=== PATIENT | male | born 1985 | race Caucasian/White ===

== ENCOUNTER 2022-12-04 21:04 | Emergency (ER) | payer OTHER, SELFPAY ==
[2022-12-04 21:10] VITALS: BP 155/80; PULSE 104; RESP 18; TEMP 37.1; O2SAT 98; BMI 51.5
--- NOTE | 2022-12-04 21:45 | DI.RAD.S_ITS ---
PROCEDURE: XR KNEE RT 3V INDICATIONS: fall, pain TECHNIQUE: 3 views of the knee were acquired. COMPARISON: None. FINDINGS: Bones: No fractures or dislocations. No suspicious bony lesions. Soft tissues: There is a small joint effusion. No suspicious soft tissue calcifications. IMPRESSION: 1. No fracture or dislocation 2. Small joint effusion. Dictated by: Alonso Alanis M.D. on 12/04/2022 at 23:30 Approved by: Alonso Alanis M.D. on 12/04/2022 at 23:42
--- NOTE | 2022-12-04 23:53 | ED.LOWEXIN ---
HPI - Extremity Injury (Lower) General Chief Complaint: Extremity Injury, Lower Stated Complaint: Right knee injury Time Seen by Provider: 12/04/22 23:15 Source: patient and EMS Mode of arrival: EMS History of Present Illness HPI Narrative: 37-year-old gentleman visiting from [place] history of hypertension, morbid obesity, HIV positive with undetectable viral levels, asthma stepped onto his parents boat and missed a step hyperextending the right leg and hyperflexing the left. Unable to bear weight on the right and feels that it is unstable with any attempts to put weight on it. Comes in for further evaluation Related Data Previous Rx's Medication Instructions Recorded oxycodone 5 mg tablet 5 mg PO Q6H PRN pain #20 tabs 12/05/22 Review of Systems Review of Systems Narrative: Pertinent positive and negative findings as per HPI Patient History Social History Smoking Status: Never smoker Smoking Status: Never smoker Substance Use Type: does not use Exam Initial Vital Signs Initial Vital Signs: Vital Signs Temperature 98.7 F 12/04/22 21:10 Pulse Rate 104 H 12/04/22 21:10 Respiratory Rate 18 12/04/22 21:10 Blood Pressure 155/80 H 12/04/22 21:10 Pulse Oximetry 98 12/04/22 21:10 Oxygen Delivery Method Room Air 12/04/22 21:10 General: Alert appropriate in no acute distress Respiratory: Able to speak in full sentences, no obvious respiratory distress Skin: No obvious rashes, warm and dry Neurologic: Grossly intact no obvious asymmetries or abnormalities Psych: appropriate insight and affect, cooperative Extremity: Left knee with some minor tenderness along the medial collateral ligament. Right knee with minor effusion and significant tenderness with movement in any plane. To tender to fully evaluate ligamentous stability. Procedures Orthopedic Splinting/Casting right knee: Time of procedure: 00:16 Side: right Lower Extremity Injury Location: knee Lower Extremity Immobilizer: knee immobilizer Other Orthopedic Equipment: crutches Post splinting neuro exam: intact Post splinting vascular exam: intact Placed by: Nursing Course Orders Ordered: ED Orders 12/04/22 21:45 XR knee RT 3V Stat Vital Signs Vital signs: Vital Signs - 8 hr 12/04/22 21:10 Temperature 98.7 F Pulse Rate 104 H Respiratory Rate 18 Blood Pressure 155/80 H Pulse Oximetry 98 Oxygen Delivery Method Room Air MDM - Extremity Injury (Lower) MDM Narrative Medical decision making narrative: CC: Hyperextension injury right knee, felt a ?pop?, knee feels unstable and painful to stand on. This is an acute injury uncertain prognosis Complicating co-morbidities: Morbid obesity Data collected from: patient, mother Social determinants of health that may influence the patients condition: Patient currently visiting from out of town Differential considered: Fractures, acute ligamentous injury Exam documented above, pertinent findings include: Right side has a mild effusion sense of instability with any movement of the knee and unable to bear weight. Imaging studies independently reviewed: X-ray of the knee does not show any acute bony injury Treatments:PO ibuprofen, percoset, ICE Discussion: 37-year-old gentleman who missed a step stepping onto the boat hyperextension injury to the right knee with a ?pop? heard and felt with increasing pain and joint instability. Suspect acute ligamentous injury. He is placed in a knee immobilizer, discussed pain control, use of crutches importance of not placing any weight on the knee without the immobilizer in place for risk of falling. Will need orthopedic follow-up and likely advanced imaging for definitive treatment and diagnosis. He is safe for discharge home Discharge Plan Departure Patient Disposition: Home Clinical Impression: Knee derangement Qualifiers: Laterality: right Qualified Code(s): M23.91 - Unspecified internal derangement of right knee Instructions: DI for Knee Sprain Activity Restrictions/Additional Instructions: Thank you for coming in today I am concerned that you may have some significant ligamentous injury to your right knee particularly with the sense that the knee feels unstable with movement. There is no bony injury. You need to keep the knee in the knee immobilizer for stability, you can use crutches and he do need to follow-up with orthopedic surgery. Would recommend calling [facility] at [phone] to set up a ER follow-up appointment for right knee injury. Using 400 mg of ibuprofen (2 [id number] pills) and 1 Tylenol every 6 hours can be very helpful in controlling pain. Adding 5 mg of oxycodone to this combination can be helpful for severe pain. Please do expect to find increasing pain in additional places like your low back over the next 24 hours as your body begins to heal. Keeping the knee elevated and iced can also help. If you find that you are getting worse or develop any new symptoms, please feel free to return to the emergency department for further evaluation. Prescriptions: New oxycodone 5 mg tablet 5 mg PO Q6H PRN (Reason: pain) Qty: 20 0RF Stand Alone Forms: Patient Portal/API
[2022-12-05] MEDS: IBUPROFEN 400 MG TABLET PO (00:25)
[2022-12-05] MEDS: OXYCODONE/APAP 5/325 PREPACK 1 BOTTLE MISC (00:26)
[2022-12-05] MEDS: OXYCODONE/ACETAMINOPHEN 5/325 TABLET 1 TAB PO ×2 (00:26→01:07)
[2022-12-05 01:14] VITALS: BP 172/94; PULSE 95; RESP 18; O2SAT 98
== END 2022-12-05 01:16 | disposition home or self-care (01) ==
PROVIDERS: Emergency Provider Emergency Medicine
DX: M23.91 Unspecified internal derangement of right knee (principal); X58.XXXA Exposure to other specified factors, initial encounter
CPT/HCPCS: 73562; 99283

== ENCOUNTER 2022-12-05 14:55 | Emergency (ER) | payer OTHER, SELFPAY ==
[2022-12-05 14:58] VITALS: BP 135/85; PULSE 97; RESP 18; TEMP 36.7; O2SAT 98; BMI 51.5
--- NOTE | 2022-12-05 15:57 | ED.LOWEXIN ---
HPI - Extremity Injury (Lower) General Chief Complaint: Extremity Injury, Lower Stated Complaint: R Knee Pain Time Seen by Provider: 12/05/22 15:22 Source: patient and EMS Mode of arrival: EMS History of Present Illness HPI Narrative: Patient is a 37-year-old male who was seen here in the emergency department yesterday after a hyperextension injury to his right leg. He had an x-ray which showed no fractures. He was placed in a knee immobilizer. Was placed on crutches and pain medication and instructed to follow up with Orthopedics. He returns to the emergency department today stating that he can not put any pressure on his right leg because of the discomfort. He also states he can not support his body weight with his left leg. Has been sitting at home. His pain has not been controlled. Related Data Previous Rx's Medication Instructions Recorded oxycodone 5 mg tablet 5 mg PO Q6H PRN pain #20 tabs 12/05/22 oxycodone 5 mg tablet 10 mg PO Q6H PRN pain #30 tabs 12/05/22 Allergies Allergy/AdvReac Type Severity Reaction Status Date / Time codeine Allergy Unknown Verified 12/05/22 01:36 Sulfa (Sulfonamide Allergy Unknown Verified 12/05/22 01:36 Antibiotics) Review of Systems Constitutional Constitutional: Reports system reviewed and no additional complaints, except as documented Musculoskeletal Musculoskeletal: Reports system reviewed and no additional complaints, except as documented Integumentary/Breasts Skin/Breast: Reports system reviewed and no additional complaints, except as documented Neurologic Neurologic: Reports system reviewed and no additional complaints, except as documented Patient History Social History Smoking Status: Never smoker Smoking Status: Never smoker Substance Use Type: does not use Exam Initial Vital Signs Initial Vital Signs: Vital Signs Temperature 98.0 F 12/05/22 14:58 Pulse Rate 97 H 12/05/22 14:58 Respiratory Rate 18 12/05/22 14:58 Blood Pressure 135/85 12/05/22 14:58 Pulse Oximetry 98 12/05/22 14:58 Oxygen Delivery Method Room Air 12/05/22 14:58 HENMT Head: normal to inspection and normocephalic Extrem Other: Patient in a right knee immobilizer, his right foot is unremarkable. His compartments are soft. Does have some moderate swelling of the right knee. Unable to do functional testing of his ligaments secondary to pain. Course Vital Signs Vital signs: Vital Signs - 8 hr 12/05/22 14:58 Temperature 98.0 F Pulse Rate 97 H Respiratory Rate 18 Blood Pressure 135/85 Pulse Oximetry 98 Oxygen Delivery Method Room Air MDM - Extremity Injury (Lower) MDM Narrative Medical decision making narrative: Unfortunately there is not much more we can do out of the emergency department. He does not meet criteria for admission to the hospital nor transfer to an outside facility. He has follow-up orthopedics already scheduled. He is crutches at home. He states his issues his that he can not get from sitting to standing because his upper extremities are too weak to lift his body. He also feels like he can not support himself with his left leg. He also states he feels like the knee immobilizer is not supporting his leg. I offered a walker but he states that he has walkers at home. He was given information for DME to look for a wheelchair. He was instructed that he could increase his pain medication. Discharge Plan Departure Patient Disposition: Home Clinical Impression: Knee derangement Activity Restrictions/Additional Instructions: Unfortunately there is not much more we can offer out of the emergency department. You do need follow-up with Orthopedics. Your x-ray from yesterday did not show any signs of fractures or dislocations so you can put pressure on your right leg. This may cause you to have quite a bit of discomfort but this maybe which you have to do in order to get up to use the walker with the crutches. You do need to continue to follow-up with orthopedics. You can increase your pain medication to 2 tablets every 6 hours if needed. Prescriptions: New oxycodone 5 mg tablet 10 mg PO Q6H PRN (Reason: pain) Qty: 30 0RF No Action oxycodone 5 mg tablet 5 mg PO Q6H PRN (Reason: pain) Qty: 20 0RF Stand Alone Forms: Patient Portal/API
[2022-12-05 16:54] VITALS: BP 143/83; PULSE 88; RESP 16; TEMP 36.2; O2SAT 96
--- NOTE | 2022-12-05 17:53 | PC.NURSE ---
After discharging pt, pt reported that he had not urinated in 12 hours due to his reluctance to try to stand and fear of falling again. Developed a plan for success with patient and provided pt with urinal and privacy. Checked back with pt and he was tearful, stating he was unable to urinate in a seated position. Provided Kleenex and reassurance that we would figure out a safe way to urinate before leaving. Invited pt to stay until he was able to urinate. Coached pt on mobility strategies and maintaining safety precautions. Helped pt position wheelchair to slide and transfer to bed with plan to raise bed to standing, a plan the patient was enthusiastic about. Pt's phone rang and he stated it was his doctor from [place] and engaged in conversation with her. Gave pt call light and asked him to call when he was off the phone and ready for assistance. While I was with other patients during this time, phone technician and other staff offered assistance. Pt's parents arrived. Pt urinated and left the department via wheelchair with tech and parents.
== END 2022-12-05 17:03 | disposition home or self-care (01) ==
PROVIDERS: Emergency Provider Emergency Medicine
DX: M23.91 Unspecified internal derangement of right knee (principal); S89.81XA Other specified injuries of right lower leg, initial encounter; X50.9XXA Other and unspecified overexertion or strenuous movements or postures, initial encounter
CPT/HCPCS: 99281; 99282